=== PATIENT | female | born 1985 | race Caucasian/White ===

== ENCOUNTER 2018-06-28 14:01 | Inpatient (IN) | payer OTHER ==
[2018-06-28 21:28] VITALS: BMI 25.4
[2018-06-28] MEDS: Lactated Ringer's 1,000 ML IV SCH (21:39)
[2018-06-28 22:03] LABS: BASO % 0.3 % (0.0-2.0); EOS # 0.1 K/uL (0.0-0.7); EOS % 0.8 % (0.0-4.0); HEMOGLOBIN 11.2 g/dL (11.0-16.0); LYMPH # 1.6 K/uL (1.0-4.3); LYMPH % 15.5 % (20.0-40.0); MEAN CELL VOLUME 90.7 fL (81.0-99.0); MEAN CORPUSCULAR HEMOGLOBIN 30.9 pg (27.0-31.0); MEAN CORPUSCULAR HGB CONC 34.1 g/dL (33.0-37.0); MEAN PLATELET VOLUME 8.6 fL (7.2-11.7); MONO # 0.9 K/uL (0.0-0.8); MONO % 8.4 % (0.0-10.0); NEUT # 7.9 K/uL (1.8-7.0); RBC 3.62 Mil/uL (3.80-5.20); RED CELL DISTRIBUTION WIDTH 13.2 % (11.5-14.5); WHITE BLOOD COUNT 10.5 K/uL (4.8-10.8)
[2018-06-28 22:20] LABS: SQUAMOUS EPITHIAL 2 /hpf (0-5); URINE BACTERIA RARE (<OCC); URINE BILIRUBIN NEGATIVE (NEGATIVE); URINE BLOOD NEGATIVE (NEGATIVE); URINE CLARITY Clear (Clear); URINE COLOR Yellow (YELLOW); URINE GLUCOSE (UA) NORMAL (Normal); URINE LEUKOCYTE ESTERASE NEG Leu/uL (Negative); URINE PROTEIN NEGATIVE (NEGATIVE); URINE UROBILINOGEN NORMAL mg/dL (0.2-1.0)
--- NOTE | 2018-06-28 23:51 | OBADHP ---
Datetime: 06/28/2018 23:44 Admit Comment, IP Provider: A/P: 32 yo at 40+3 wks IOL for post EDC - primagravida - GBS - - IOL - pt /-2 with contractions q5-7 - Cat 2 2nd to tachycardia and occassional variable decels with goods recovery - D/W Dr Corley, resuscitation for now, allow pt to labor and FHR to be cat 1. - Reassess for IOL with cervidil or augmentation with pit Pelvic Type - PN: Adequate Extremities - PN: Normal Abdomen - PN: Normal Back - PN: Normal Breast - PN: Normal Lungs - PN: Normal Heart - PN: Normal Thyroid - PN: Normal Neurologic - PN: Normal HEENT - PN: Normal General - PN: Normal Presentation-Admit: Vertex FHR - Baseline A Provider: 150 Contraction Comments Provider: q5-7 Gestation - Est Wks by US: 40.3 Vital Signs Provider: Reviewed; Within Normal Limits IP Chief Complaint: Scheduled induction of labor NICHD Variability Prov Fetus A: Moderate 6-25bpm NICHD Accel Fetus A IP Provider: [id number] FHR Category Provider Fetus A: Category II NICHD Decel Fetus A IP Provider: Variable Dilatation, Provider: 3 Effacement, Provider: 60 Station, Provider: -2 Genitourinary Exam: Normal DTRs - PN: Normal EGA AdmitDate IP: 40.4 IP Adm Impression: Term, intrauterine IP Admit Plan: Initiate labor induction protocol
[2018-06-29] MEDS: Lactated Ringer's 1,000 ML IV SCH (01:30)
[2018-06-29] MEDS ORDERED: Oxytocin 30 UNIT 30 UNITS/500 ML BAG IV SCH (09:00)
[2018-06-29] MEDS ORDERED: Fentanyl/Bupivacaine HCl 250 ML EPI ONE (09:09)
[2018-06-29] MEDS ORDERED: Oxytocin 30 UNIT 30 UNITS/500 ML BAG IV ONE (09:39)
[2018-06-29] MEDS ORDERED: Lidocaine Hydrochloride 5 ML INJ ONE (09:53)
[2018-06-29] MEDS ORDERED: Phenylephrine 10 mg/ml Inj ONE (09:57)
[2018-06-29] MEDS ORDERED: Morphine 1 mg/ml preservative-free Inj(Duramorph) ONE (09:57)
[2018-06-29] MEDS ORDERED: Acetaminophen-Codeine 300/30 mg Tab PO PRN (15:24)
[2018-06-29] MEDS ORDERED: Oxycodone/Acetaminophen 5/325 mg Tab PO PRN ×2 (15:24)
--- NOTE | 2018-06-29 15:36 | OBDS ---
DELIVERY PERSONNEL Delivery Doctor: genie miller [employer] Lecturer: Bri Charles RN Anesthesiologist: ochoa MATERNAL INFORMATION Delivery Anesthesia: Epidural Medications in Delivery: pitocin 20/CYTOTEC 800 MCG Estimated Blood Loss (ml): 300 Placenta Cultured: No Maternal Complications: None Provider Comments: vacuum applied to decrase time to , +2 station, appropriate placement, le ss than 5sec application, upon episiotomy done and rest of delivery wtihout vacuum and mater nal pushing, no dystocia LABOR SUMMARY EDC: 06/25/2018 00:00 No. Babies in Womb: 1 Attempted: No Labor Anesthesia: None LABOR INFORMATION Complete Dilatation: 06/29/2018 13:00 Oxytocin: Induction Group B Beta Strep: Negative (Annotations: 05/21/2018) MEMBRANES Membranes Rupture Method: Spontaneous Rupture of Membranes: 06/29/2018 06:49 Length of Rupture (hrs): 7.85 Amniotic Fluid Color: Clear Amniotic Fluid Amount: Moderate Amniotic Fluid Odor: Normal STAGES OF LABOR Stage 2 hrs: 1 Stage 2 min: 40 Stage 3 hrs: 0 Stage 3 min: 8 VAGINAL DELIVERY Episiotomy: Right Mediolateral Laceration Extension: N/A Laceration Type: None Laceration Repair: Yes Laceration Repair Note: RML repaired in 2 layers Initial Vag Sponge Count: 10 Final Vag Sponge Count: 10 Initial Vag Sharps Count: 2 Final Vag Sharps Count: 2 Sponge Count Correct: Yes BABY A INFORMATION Infant Delivery Date/Time: 06/29/2018 14:40 Method of Delivery: Vaginal Born in Route : No : N/A Forceps: N/A Vacuum Extraction: Successful Shoulder Dystocia : No SHOULDER DYSTOCIA BABY A Delivery Date/Time: 06/29/2018 14:40 PRESENTATION/POSITION BABY A Presentation: Cephalic Cephalic Presentation: Vertex Breech Presentation: N/A PLACENTA INFORMATION BABY A Placenta Delivery Time : 06/29/2018 14:48 Placenta Method of Delivery: Spontaneous Placenta Status: Delivered SCORES BABY A Heart Rate 1 min: >100 bpm Resp Effort 1 min: Good Cry Reflex Irritability 1 min: Cough or Sneeze or Pulls Away Muscle Tone 1 min: Active Motion Color 1 min: Body [place], Extremities Blue Resuscitation Effort 1 min: Tactile Stimulation SCORE 1 MIN: 9 Heart Rate 5 min: >100 bpm Resp Effort 5 min: Good Cry Reflex Irritability 5 min: Cough or Sneeze or Pulls Away Muscle Tone 5 min: Active Motion Color 5 min: Body [place], Extremities Blue SCORE 5 MIN: 9 INFORMATION BABY A Gestational Age at Delivery: 40.0 Gestational Status: Term Outcome : Liveborn Infant Condition : Stable Sex: Male IDENTIFICATION/MEDS BABY A ID Band Number: [id number] ID Band Location: Left Leg; Left Arm Sensor Applied: Yes Sensor Number: [id number] Sensor Location : Cord Clamp WEIGHT/LENGTH BABY A Infant Birthweight (gms): 3280 Infant Weight (lb): 7 Infant Weight (oz): 4 Length Inches: 19.50 Length cms: 49.5 CORD INFORMATION BABY A No. Cord Vessels: 3 Nuchal Cord : N/A Cord Blood Taken: Yes Infant Suction: Mouth; Nose
[2018-06-29] MEDS: Benzocaine/Menthol 20%-0.5% Topical Spray (60 ml) TOP PRN (18:59)
[2018-06-30] MEDS: Benzocaine/Menthol 20%-0.5% Topical Spray (60 ml) TOP PRN (04:00)
[2018-06-30] MEDS: Multiple Vitamins Tab PO SCH (10:59)
[2018-06-30 11:13] LABS: BASO % 0.3 % (0.0-2.0); EOS % 0.3 % (0.0-4.0); HEMOGLOBIN 9.8 g/dL (11.0-16.0); LYMPH # 1.5 K/uL (1.0-4.3); LYMPH % 10.7 % (20.0-40.0); MEAN CELL VOLUME 91.2 fL (81.0-99.0); MEAN CORPUSCULAR HGB CONC 35.1 g/dL (33.0-37.0); MEAN PLATELET VOLUME 8.3 fL (7.2-11.7); MONO # 0.9 K/uL (0.0-0.8); MONO % 6.6 % (0.0-10.0); NEUT # 11.4 K/uL (1.8-7.0); NEUT % 82.1 % (50.0-75.0); RBC 3.07 Mil/uL (3.80-5.20); RED CELL DISTRIBUTION WIDTH 13.4 % (11.5-14.5); WHITE BLOOD COUNT 13.9 K/uL (4.8-10.8)
[2018-07-01] MEDS: Multiple Vitamins Tab PO SCH (09:27)
[2018-07-01 09:41] VITALS: RESP 18
[2018-07-01 16:43] VITALS: O2SAT 98
[2018-07-01] MEDS ORDERED: Influenza Vaccine 60 MCG/0.5 ML SYR (3 yr & up) IM ONE (18:33)
--- NOTE | 2018-07-01 21:17 | OBDCSUM ---
Datetime: 07/01/2018 18:55 Discharged to, Provider: Home Follow up at, Provider: Barney GUTIERRES Disch Instr Activity: Normal activity; May Shower Disch Instr Diet: Regular Discharge Diet restrict Prov: none Discharge Instructions, Provider: Routine instructions given Discharge Diagnosis, Provider: Term Delivered; Postterm Discharge Time: 07/01/2018 18:55 Follow up in weeks, Provider: 07/06/18 Disch Referrals: None Contraception discussed, Prov: Yes Disch Activity Restrictions: No exercising; No lifting; No sexual activity; Nothing in vagina - Inte rcourse, tampons, douche Discharge Comment, Provider: PPD # 2 S/P of a viable female PP HB 9.8 and Asymptomatic States that she already takes Vitamins with Fe and will continue BID S/P Perineal laceration and will continue with Sitz baths, Dermoplast and Tucks at home without complications Stable and Satisfactory condition and recovery Seen for Dr. Corley and per her request Discharge home with instructions and Rx for percocet, per Dr Corley's request, and for Motrin. Contraception after Delivery: Undecided
[2018-07-02 01:02] VITALS: BP 102/59; PULSE 70; TEMP 97.5
== END 2018-07-01 20:20 | disposition home or self-care (01) | DRG 807 ==
LOC: C.4D 19:32 → C.4M 06-29 17:15
PROVIDERS: ADMIT Obstetrics & Gynecology; ATTEND Obstetrics & Gynecology
PROC: 10D07Z8 Extraction of Products of Conception, Other, Via Natural or Artificial Opening (ICD-10-PCS; principal; 2018-06-29)
PROC: 3E0P7VZ Introduction of Hormone into Female Reproductive, Via Natural or Artificial Opening (ICD-10-PCS; 2018-06-29)
PROC: 0W8NXZZ Division of Female Perineum, External Approach (ICD-10-PCS; 2018-06-29)
DX: O76 Abnormality in fetal heart rate and rhythm complicating labor and delivery (principal); O48.0 Post-term pregnancy; Z37.0 Single live birth; Z3A.40 40 weeks gestation of pregnancy